=== PATIENT | female | born 1985 | race Caucasian/White ===

== ENCOUNTER 2016-03-01 14:29 | Emergency (ER) | payer OTHER ==
[~2016-03-01 14:29] MED LIST: ACET50TA PO; IBUP100SUS FT; IBUP80TA PO; PRENTAB74 PO
--- NOTE | 2016-03-01 15:28 | EDDOCDS ---
Nurse's Notes [facility] Name: Mary Lou Aaron Age: 31 yrs Sex: Female : 1985 Arrival Date: 03/01/2016 Time: 14:29 Bed TR7 Private MD: No Pcp Diagnosis: Acute nasopharyngitis [common cold] Presentation: 03/01 14:36 Presenting complaint: Patient states: Sore throat cough and congestion began yesterday. mlb1 Adult Sepsis Screening: The patient does not have new or worsening altered mentation. Patient's respiratory rate is less than 22. Systolic blood pressure is greater than 100. Patient has a qSOFA score of 0- Negative Sepsis Screen. Suicide/Homicide risk assessment- the patient denies having any suicidal and/or homicidal ideations and does not present with any other emotional, behavioral or mental health complaints. Status: Patient is not a administrative services specialist or dependent. Transition of care: patient was not received from another setting of care. 14:36 Acuity: MERLIN Level 5 mlb1 14:36 Method Of Arrival: Walkin/Carried/Asstd mlb1 Triage Assessment: 14:37 General: Appears in no apparent distress, Behavior is appropriate for age, cooperative. mlb1 Pain: Denies pain. HIV screening NA for this visit Offered previously. Respiratory: Reports cough that is non-productive. 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 Mirena 20 mcg/24 hr (5 years) intrauterine IUD - PMHx: none; - PSHx: none; - Social history: Smoking status: Patient states was never smoker of tobacco. No barriers to communication noted, The patient speaks fluent Mauritanian, Speaks appropriately for age. - Family history: Not pertinent. - : The pt / caregiver states he / she is not on anticoagulants. Home medication list is obtained from the patient. - Exposure Risk Screening:: None identified. Screenin:25 Screening information is obtained from the patient. Fall risk: No risks identified. ck1 Assistance ADL's: requires no assistance with activities of daily living. Abuse/DV Screen: The patient / caregiver reports he/she is: not in a situation that causes fear, pain or injury. Nutritional screening: No deficits noted. Advance Directives: Currently, there is no health care proxy. home support is adequate. Assessment: 15:26 General: Appears in no apparent distress, comfortable, Behavior is appropriate for age, ck1 cooperative. Pain: Denies pain. Neurological: Level of Consciousness is awake, alert, obeys commands, Oriented to person, place, time. Respiratory: Respiratory effort is unlabored, Respiratory pattern is regular, symmetrical. Derm: Skin is intact, is healthy with good turgor, Skin is pink, warm & dry. Vital Signs: 14:31 BP 123 / 68; Pulse 92; Resp 16; Temp 97.4(T); Pulse Ox 100% on R/A; Weight 70.31 kg; sew Height 5 ft. 3 in. (160.02 cm); Pain 0/10; 14:31 Body Mass Index 27.46 (70.31 kg, 160.02 cm) sew Vitals: 14:31 Log In Time: March 01, 2016 at 14:20. sew ED Course: 14:30 Patient visited by Alva Fallon. sew 14:30 Patient moved to Waiting sew 14:31 No Pcp is Private Physician. sew 14:32 Patient visited by Alva Fallon. sew 14:32 Patient moved to Pre RCE sew 14:36 Patient visited by Efe Maloney, RN. mlb1 14:36 Triage Initiated mlb1 14:38 Patient visited by Efe Maloney, RN. mlb1 15:08 Patient moved to Triage 1 ead 15:13 Fermin Alexander PA is PHCP. btw 15:13 Alva Rubio MD is Attending Physician. btw 15:13 Patient visited by Fermin Alexander PA. btw 15:21 [facility] is Referral Physician. btw 15:24 Patient moved to TR7 ck1 15:26 The patient / caregiver is instructed regarding the plan of care and ED course. ck1 15:26 No IV's were initiated during this patient's visit. No procedures done that require ck1 assistance. Order Results: There are currently no results for this order. Outcome: 15:21 Discharge ordered by Provider. btw 15:24 Discharge Assessment: Patient awake, alert and oriented x 3. No cognitive and/or ck1 functional deficits noted. Patient verbalized understanding of disposition instructions. patient administered narcotics - no. The following High Risk Discharge criteria are identified: None. Discharged to home ambulatory. Condition: stable. Discharge instructions given to patient, Instructed on discharge instructions, follow up and referral plans. medication usage, Demonstrated understanding of instructions, medications, Pt was receptive of discharge instructions/ teaching. No special radiology studies were completed. Property :Personal belongings accompany Pt. 15:27 Patient left the ED. ck1 Signatures: Efe Maloney RN RN mlb1 Carlyn JadeRN RN ck1 Fermin Alexander PA PA btw Wallace, Sarah sew Dunaway, EmilyRN RN ead Corrections: (The following items were deleted from the chart) 14:38 14:37 Home Meds: none; leroy harper MTDD
--- NOTE | 2016-03-01 15:28 | EDDOCDS ---
Physician Documentation [facility] Name: Mary Lou Aaron Age: 31 yrs Sex: Female : 1985 Arrival Date: 03/01/2016 Time: 14:29 Bed TR7 Private MD: No Pcp Disposition: 03/01/16 15:21 Discharged to Home/Self Care. Impression: Acute nasopharyngitis [common cold]. - Condition is Stable. - Discharge Instructions: Cool Mist Vaporizers, Upper Respiratory Infection, Adult, Gwpt-mp-Jusi, Viral Infections, Fjyq-Mc-Oacu. - Medication Reconciliation, Local Pharmacy Hours form. - [facility]: [facility]; When: Call to arrange an appointment; Reason: To establish care. - Problem is new. - Symptoms are unchanged. Historical: - Allergies: PENICILLINS (Hives, Rash); SULFA (SULFONAMIDES) (Hives); - Home Meds: 1. Mirena 20 mcg/24 hr (5 years) intrauterine IUD - PMHx: none; - PSHx: none; - Social history: Smoking status: Patient states was never smoker of tobacco. No barriers to communication noted, The patient speaks fluent Spanish, Speaks appropriately for age. - Family history: Not pertinent. - : The pt / caregiver states he / she is not on anticoagulants. Home medication list is obtained from the patient. - Exposure Risk Screening:: None identified. 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 3 in. (160.02 cm); Pain 0/10; 14:31 Body Mass Index 27.46 (70.31 kg, 160.02 cm) sew Signatures: Efe Maloney RN RN mlb1 Carlyn Jade RN RN ck1 Fermin Alexander PA PA btw The chart was reviewed and I authenticate all verbal orders and agree with the evaluation and treatment provided.Corrections: (The following items were deleted from the chart) 14:38 14:37 Home Meds: none; mlb1 mlb1 MTDD
--- NOTE | 2016-03-03 16:27 | EDDOCDS ---
Physician Documentation [facility] Name: Mary Lou Aaron Age: 31 yrs Sex: Female : 1985 Arrival Date: 03/01/2016 Time: 14:29 Bed TR7 Private MD: No Pcp Disposition: 03/01/16 15:21 Discharged to Home/Self Care. Impression: Acute nasopharyngitis [common cold]. - Condition is Stable. - Discharge Instructions: Cool Mist Vaporizers, Upper Respiratory Infection, Adult, Kwyo-tr-Kplt, Viral Infections, Lwjh-Sq-Cyin. - Medication Reconciliation, Local Pharmacy Hours form. - Follow up: [facility]; When: Call to arrange an appointment; Reason: To establish care. - Problem is new. - Symptoms are unchanged. Historical: - Allergies: PENICILLINS (Hives, Rash); SULFA (SULFONAMIDES) (Hives); - Home Meds: 1. Mirena 20 mcg/24 hr (5 years) intrauterine IUD - PMHx: none; - PSHx: none; - Social history: Smoking status: Patient states was never smoker of tobacco. No barriers to communication noted, The patient speaks fluent Brazilian, Speaks appropriately for age. - Family history: Not pertinent. - : The pt / caregiver states he / she is not on anticoagulants. Home medication list is obtained from the patient. - Exposure Risk Screening:: None identified. 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 3 in. (160.02 cm); Pain 0/10; 14:31 Body Mass Index 27.46 (70.31 kg, 160.02 cm) sew MDM: 03/02 10:39 T-Sheet-- Draft Copy was scanned into [employer] and attached to record. gb Signatures: Georgie Odonnell, Reg Reg Efe Bernal RN RN mlb1 Carlyn Jade RN RN ck1 Fermin Alexander, GELA PA btw The chart was reviewed and I authenticate all verbal orders and agree with the evaluation and treatment provided.Corrections: (The following items were deleted from the chart) 03/01 14:38 14:37 Home Meds: none; mlb1 mlb1 Attachments: 03/02 10:39 T-Sheet-- Draft Copy gb Chart Complete MTDD
--- NOTE | 2016-03-03 16:27 | EDDOCDS ---
Nurse's Notes [facility] Name: Mary Lou Aaron Age: 31 yrs Sex: Female : 1985 Arrival Date: 03/01/2016 Time: 14:29 Bed TR7 Private MD: No Pcp Diagnosis: Acute nasopharyngitis [common cold] Presentation: 03/01 14:36 Presenting complaint: Patient states: Sore throat cough and congestion began yesterday. mlb1 Adult Sepsis Screening: The patient does not have new or worsening altered mentation. Patient's respiratory rate is less than 22. Systolic blood pressure is greater than 100. Patient has a qSOFA score of 0- Negative Sepsis Screen. Suicide/Homicide risk assessment- the patient denies having any suicidal and/or homicidal ideations and does not present with any other emotional, behavioral or mental health complaints. Status: Patient is not a central service tech or dependent. Transition of care: patient was not received from another setting of care. 14:36 Acuity: MERLIN Level 5 mlb1 14:36 Method Of Arrival: Walkin/Carried/Asstd mlb1 Triage Assessment: 14:37 General: Appears in no apparent distress, Behavior is appropriate for age, cooperative. mlb1 Pain: Denies pain. HIV screening NA for this visit Offered previously. Respiratory: Reports cough that is non-productive. 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 Mirena 20 mcg/24 hr (5 years) intrauterine IUD - PMHx: none; - PSHx: none; - Social history: Smoking status: Patient states was never smoker of tobacco. No barriers to communication noted, The patient speaks fluent Greek, Speaks appropriately for age. - Family history: Not pertinent. - : The pt / caregiver states he / she is not on anticoagulants. Home medication list is obtained from the patient. - Exposure Risk Screening:: None identified. Screenin:25 Screening information is obtained from the patient. Fall risk: No risks identified. ck1 Assistance ADL's: requires no assistance with activities of daily living. Abuse/DV Screen: The patient / caregiver reports he/she is: not in a situation that causes fear, pain or injury. Nutritional screening: No deficits noted. Advance Directives: Currently, there is no health care proxy. home support is adequate. Assessment: 15:26 General: Appears in no apparent distress, comfortable, Behavior is appropriate for age, ck1 cooperative. Pain: Denies pain. Neurological: Level of Consciousness is awake, alert, obeys commands, Oriented to person, place, time. Respiratory: Respiratory effort is unlabored, Respiratory pattern is regular, symmetrical. Derm: Skin is intact, is healthy with good turgor, Skin is pink, warm & dry. Vital Signs: 14:31 BP 123 / 68; Pulse 92; Resp 16; Temp 97.4(T); Pulse Ox 100% on R/A; Weight 70.31 kg; sew Height 5 ft. 3 in. (160.02 cm); Pain 0/10; 14:31 Body Mass Index 27.46 (70.31 kg, 160.02 cm) sew Vitals: 14:31 Log In Time: March 01, 2016 at 14:20. sew ED Course: 14:30 Patient visited by Alva Fallon. sew 14:30 Patient moved to Waiting sew 14:31 No Pcp is Private Physician. sew 14:32 Patient visited by Alva Fallon. sew 14:32 Patient moved to Pre RCE sew 14:36 Patient visited by Efe Maloney, RN. mlb1 14:36 Triage Initiated mlb1 14:38 Patient visited by Efe Maloney, RN. mlb1 15:08 Patient moved to Triage 1 ead 15:13 Fermin Alexander PA is PHCP. btw 15:13 Alva Rubio MD is Attending Physician. btw 15:13 Patient visited by Fermin Alexander PA. btw 15:21 [facility] is Referral Physician. btw 15:24 Patient moved to TR7 ck1 15:26 The patient / caregiver is instructed regarding the plan of care and ED course. ck1 15:26 No IV's were initiated during this patient's visit. No procedures done that require ck1 assistance. 03/02 10:39 T-Sheet-- Draft Copy was scanned into [employer] and attached to record. gb Order Results: There are currently no results for this order. Outcome: 03/01 15:21 Discharge ordered by Provider. btw 15:24 Discharge Assessment: Patient awake, alert and oriented x 3. No cognitive and/or ck1 functional deficits noted. Patient verbalized understanding of disposition instructions. patient administered narcotics - no. The following High Risk Discharge criteria are identified: None. Discharged to home ambulatory. Condition: stable. Discharge instructions given to patient, Instructed on discharge instructions, follow up and referral plans. medication usage, Demonstrated understanding of instructions, medications, Pt was receptive of discharge instructions/ teaching. No special radiology studies were completed. Property :Personal belongings accompany Pt. 15:27 Patient left the ED. ck1 Signatures: Georgie Odonnell, Reg Reg gb Efe Maloney RN RN mlb1 Carlyn JadeRN RN ck1 Fermin Alexander PA PA btw Alva Fallon Emily,RN RN ead Corrections: (The following items were deleted from the chart) 14:38 14:37 Home Meds: none; mlb1 mlb1 Chart Complete MTDD
--- NOTE | 2016-03-03 16:27 | EDDOCDS ---
Physician Documentation [facility] Name: Mary Lou Aaron Age: 31 yrs Sex: Female : 1985 Arrival Date: 03/01/2016 Time: 14:29 Bed TR7 Private MD: No Pcp Disposition: 03/01/16 15:21 Discharged to Home/Self Care. Impression: Acute nasopharyngitis [common cold]. - Condition is Stable. - Discharge Instructions: Cool Mist Vaporizers, Upper Respiratory Infection, Adult, Hvlq-ur-Nfjk, Viral Infections, Engh-Rh-Llpa. - Medication Reconciliation, Local Pharmacy Hours form. - Follow up: [facility]; When: Call to arrange an appointment; Reason: To establish care. - Problem is new. - Symptoms are unchanged. Historical: - Allergies: PENICILLINS (Hives, Rash); SULFA (SULFONAMIDES) (Hives); - Home Meds: 1. Mirena 20 mcg/24 hr (5 years) intrauterine IUD - PMHx: none; - PSHx: none; - Social history: Smoking status: Patient states was never smoker of tobacco. No barriers to communication noted, The patient speaks fluent Kenyan, Speaks appropriately for age. - Family history: Not pertinent. - : The pt / caregiver states he / she is not on anticoagulants. Home medication list is obtained from the patient. - Exposure Risk Screening:: None identified. 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 3 in. (160.02 cm); Pain 0/10; 14:31 Body Mass Index 27.46 (70.31 kg, 160.02 cm) sew MDM: 03/02 10:39 T-Sheet-- Draft Copy was scanned into [employer] and attached to record. gb Signatures: Georgie Odonnell, Reg Reg Efe Bernal RN RN mlb1 Carlyn Jade RN RN ck1 Fermin Alexander, GELA PA btw The chart was reviewed and I authenticate all verbal orders and agree with the evaluation and treatment provided.Corrections: (The following items were deleted from the chart) 03/01 14:38 14:37 Home Meds: none; mlb1 mlb1 Attachments: 03/02 10:39 T-Sheet-- Draft Copy gb Chart Complete MTDD
== END 2016-03-01 15:26 | disposition home or self-care (01) ==
LOC: M ED 14:29
DX: J06.9 Acute upper respiratory infection, unspecified (principal); B34.9 Viral infection, unspecified; Z97.5 Presence of (intrauterine) contraceptive device; Z88.2 Allergy status to sulfonamides; Z88.0 Allergy status to penicillin

== ENCOUNTER → 2016-12-04 | Outpatient (REF) | payer OTHER ==
[~2016-12-04] MED LIST changes: +PROM25TA PO
[2016-12-04 14:21] LABS: MEAN CORPUSCULAR HEMOGLOBIN 30.7 pg (27.0-33.0); MEAN CORPUSCULAR HGB CONC 35.1 g/dl (32.0-36.5); MEAN CORPUSCULAR VOLUME 87.5 fl (80.0-96.0); PLATELET COUNT, AUTOMATED 227 10^3/uL (150-450); RED CELL DISTRIBUTION WIDTH 11.8 % (11.5-14.5); WHITE BLOOD COUNT 8.6 10^3/uL (4.0-10.0)
[2016-12-04 14:53] LABS: HCG, SERUM QUANTITATIVE 24012 MIU/ML
[2016-12-05 13:19] LABS: HBsAg Prenatal NEGATIVE (NEGATIVE)
== END ==
LOC: M LAB REF 13:31
PROVIDERS: ATTEND Obstetrics & Gynecology
DX: Z32.01 Encounter for pregnancy test, result positive (principal); O36.80X0 Pregnancy with inconclusive fetal viability, not applicable or unspecified

== ENCOUNTER 2017-01-12 09:06 | Emergency (ER) | payer OTHER ==
[~2017-01-12] VITALS: Ht 160 cm; Wt 80.4 kg
[2017-01-12 09:17] VITALS: BP 138/88
[2017-01-12] MEDS ORDERED: DEXT75EL PO (09:20)
[2017-01-12] MEDS ORDERED: ZITHTAB PO (09:41)
== END 2017-01-12 09:49 | disposition home or self-care (01) ==
LOC: M ED 09:06
DX: O99.511 Diseases of the respiratory system complicating pregnancy, first trimester (principal); J01.90 Acute sinusitis, unspecified; Z3A.12 12 weeks gestation of pregnancy; Z88.0 Allergy status to penicillin; Z88.2 Allergy status to sulfonamides

== ENCOUNTER 2017-02-22 15:53 | Emergency (ER) | payer OTHER ==
[2017-02-22] MEDS: ACETAMINOPHEN TAB 650MG DOSE (2X325MG) PO (19:30)
== END 2017-02-22 20:15 | disposition home or self-care (01) ==
LOC: M ED 15:53
DX: O99.512 Diseases of the respiratory system complicating pregnancy, second trimester (principal); J06.9 Acute upper respiratory infection, unspecified; Z3A.19 19 weeks gestation of pregnancy; Z88.0 Allergy status to penicillin; Z88.2 Allergy status to sulfonamides
CPT/HCPCS: 87804

== ENCOUNTER → 2017-04-22 | Outpatient (CLI) | payer OTHER ==
[2017-04-22 16:28] LABS: HEMATOCRIT 34.1 % (36.0-47.0); MEAN CORPUSCULAR HEMOGLOBIN 30.6 pg (27.0-33.0); MEAN CORPUSCULAR HGB CONC 35.2 g/dl (32.0-36.5); PLATELET COUNT, AUTOMATED 188 10^3/uL (150-450); RED BLOOD COUNT 3.92 10^6/uL (4.00-5.40); RED CELL DISTRIBUTION WIDTH 12.1 % (11.5-14.5); WHITE BLOOD COUNT 11.2 10^3/uL (4.0-10.0)
[2017-04-22 16:48] LABS: GLUCOSE CHALLENGE TEST 1 HOUR 151 MG/DL (LESS THAN 140)
== END ==
LOC: M LAB 14:51
DX: Z34.82 Encounter for supervision of other normal pregnancy, second trimester (principal); Z3A.00 Weeks of gestation of pregnancy not specified
CPT/HCPCS: 82950

== ENCOUNTER → 2017-04-25 | Outpatient (CLI) | payer OTHER ==
[2017-04-25 09:39] LABS: GLUCOSE, FASTING 98 MG/DL (LESS THAN 95)
[2017-04-25 10:51] LABS: 1 HR GLUCOSE 182 MG/DL (LESS THAN 180)
[2017-04-25 12:07] LABS: 2 HR GLUCOSE 133 MG/DL (LESS THAN 155)
[2017-04-25 13:13] LABS: 3 HR GLUCOSE 85 MG/DL (LESS THAN 140)
== END ==
LOC: M LAB 08:43
DX: O99.810 Abnormal glucose complicating pregnancy (principal); Z3A.00 Weeks of gestation of pregnancy not specified
CPT/HCPCS: 82951

== ENCOUNTER → 2017-07-04 | Outpatient (REF) | payer OTHER | LOC: M LAB REF 16:41 | DX: O24.415 Gestational diabetes mellitus in pregnancy, controlled by oral hypoglycemic drugs (principal); Z3A.37 37 weeks gestation of pregnancy ==

== ENCOUNTER 2017-07-17 11:16 | Inpatient (IN) | payer OTHER ==
[2017-07-17 12:06] LABS: BEDSIDE GLUCOSE 108 MG/DL (70-105)
[2017-07-17] MEDS: LR 300 ML IV (12:24)
[2017-07-17 12:44] LABS: HEMATOCRIT 33.1 % (36.0-47.0); HEMOGLOBIN 11.6 g/dl (12.0-15.5); MEAN CORPUSCULAR HEMOGLOBIN 29.7 pg (27.0-33.0); MEAN CORPUSCULAR VOLUME 84.9 fl (80.0-96.0); PLATELET COUNT, AUTOMATED 152 10^3/uL (150-450); RED CELL DISTRIBUTION WIDTH 12.6 % (11.5-14.5); WHITE BLOOD COUNT 9.5 10^3/uL (4.0-10.0)
[2017-07-17] MEDS: miSOPROStol 50 MCG 1/2 TAB (S0191) PO (14:22)
[2017-07-17 16:36] LABS: BEDSIDE GLUCOSE 113 MG/DL (70-105)
[2017-07-17] MEDS ORDERED: OXYTOCIN 30 UNITS IN 0.9% NaCl 500ML IV BAG (J2590) As Ordered (19:03)
[2017-07-17] MEDS: LR 1,000 ML IV (19:26)
[2017-07-17] MEDS: OXYTOCIN DRIP 30 UNITS in APPROPRIATE DILUENT 1 EA IV ×2 (19:26→23:49)
[2017-07-17] MEDS: VANCOMYCIN HCL 1,000 MG, VIAL MATE ADAPTER 1 EACH in D5W 250 ML IV (20:08)
[2017-07-17] MEDS ORDERED: * PENDING VANCOMYCIN ENTRY XX (21:00)
[2017-07-17 21:45] LABS: BEDSIDE GLUCOSE 110 MG/DL (70-105)
[2017-07-17] MEDS ORDERED: FENTANYL 2MCG/ML ROPIVACAINE 0.2% IN 0.9% NACL 200ML IVBAG As Ordered (22:09)
[2017-07-17] MEDS ORDERED: FENTANYL/ROPIVACAINE/NACL BAG 200 ML EPIDURAL (23:00)
[2017-07-17] MEDS ORDERED: REFRIGERATOR IV KEYS XX (23:00)
[2017-07-17] MEDS ORDERED: EPIDURAL COMMENT XX (23:00)
[2017-07-17] MEDS ORDERED: diphenhydrAMINE INJ 50MG/ML VIAL (J1200) IV (23:00)
[2017-07-17] MEDS ORDERED: ePHEDrine SULFATE 25 MG/5 ML(5MG/ML) SYRINGE IV (23:00)
[2017-07-17] MEDS ORDERED: ONDANSETRON 4MG/2ML VIAL (J2405) IV (23:00)
[2017-07-17] MEDS ORDERED: EPIDURAL/PCA KEYS XX (23:00)
[2017-07-17] MEDS ORDERED: LACTATED RINGER'S 1000 ML IV (23:00)
[2017-07-17] MEDS ORDERED: NALOXONE INJ 0.4 MG/1 ML VIAL (J2310) IV (23:00)
[2017-07-18] MEDS ORDERED: ANUSOL HC CREAM 30GM TOP
[2017-07-18] MEDS ORDERED: ACETAMINOPHEN 500 MG TAB PO
[2017-07-18] MEDS ORDERED: METHYLERGONOVINE MALEATE 0.2 MG TAB PO
[2017-07-18] MEDS ORDERED: DIBUCAINE 1% OINTMENT 30GM TOP
[2017-07-18] MEDS: IBUPROFEN 800 MG TAB PO ×2 (06:52→17:13)
[2017-07-18] MEDS: RHOGAM 300 MCG (1500 IU) INJ (J2790) IM (07:15)
[2017-07-18] MEDS: MEASLES,MUMPS,RUBELLA VACCINE INJ (MMR-II) (90707) SC (07:15)
[2017-07-18] MEDS: PRENATAL VITAMINS CHEWABLE TABLET PO (08:17)
[2017-07-18] MEDS: DOCUSATE SODIUM 100 MG CAP PO (19:47)
[2017-07-19] MEDS: PRENATAL VITAMINS CHEWABLE TABLET PO (10:40)
== END 2017-07-19 10:45 | disposition home or self-care (01) | DRG 560 ==
LOC: M LDI 11:16 → M OBS 07-18 02:48
PROVIDERS: Advanced Practice Midwife
PROC: 10E0XZZ Delivery of Products of Conception, External Approach (ICD-10-PCS; principal; 2017-07-17)
PROC: 3E0P7GC Introduction of Other Therapeutic Substance into Female Reproductive, Via Natural or Artificial Opening (ICD-10-PCS; 2017-07-17)
DX: O24.425 Gestational diabetes mellitus in childbirth, controlled by oral hypoglycemic drugs (principal); Z3A.39 39 weeks gestation of pregnancy; O99.824 Streptococcus B carrier state complicating childbirth; Z37.0 Single live birth

== ENCOUNTER 2017-11-29 09:57 | Day surgery (SDC) | payer OTHER ==
[2017-11-29] MEDS: LR 1,000 ML IV (10:30)
[2017-11-29 10:38] LABS: CONTROL LINE UCG INT CTR LINE PRESENT; HEMATOCRIT 41.7 % (36.0-47.0); HEMOGLOBIN 14.4 g/dl (12.0-15.5); MEAN CORPUSCULAR HEMOGLOBIN 30.3 pg (27.0-33.0); MEAN CORPUSCULAR HGB CONC 34.5 g/dl (32.0-36.5); MEAN CORPUSCULAR VOLUME 87.8 fl (80.0-96.0); PLATELET COUNT, AUTOMATED 221 10^3/uL (150-450); RED BLOOD COUNT 4.75 10^6/uL (4.00-5.40); RED CELL DISTRIBUTION WIDTH 11.9 % (11.5-14.5); URINE PREG TEST NEGATIVE (NEGATIVE); WHITE BLOOD COUNT 7.2 10^3/uL (4.0-10.0)
[2017-11-29] MEDS ORDERED: ROCURONIUM BROMIDE 50 MG/5 ML VIAL As Ordered (11:17)
[2017-11-29] MEDS ORDERED: dexameTHASONE 4 MG/ML 1ML VIAL (J1100) As Ordered (11:17)
[2017-11-29] MEDS ORDERED: PROPOFOL 200 MG/20 ML VIAL As Ordered (11:17)
[2017-11-29] MEDS ORDERED: LIDOCAINE 2% INJ 100 MG/5 ML SDV (FOR ANES.) As Ordered (11:17)
[2017-11-29] MEDS ORDERED: MIDAZOLAM INJ 2 MG/2 ML VIAL (J2250) As Ordered (11:17)
[2017-11-29] MEDS ORDERED: fentaNYL 100 MCG/2 ML INJECTION (J3010) As Ordered ×3 (11:17→12:55)
[2017-11-29] MEDS ORDERED: ONDANSETRON 4MG/2ML VIAL (J2405) As Ordered ×2 (11:17→12:47)
[2017-11-29] MEDS: BUPIVACAINE/EPIN 0.25% 30 ML VIAL As Ordered (11:26)
[2017-11-29] MEDS: ACETAMINOPHEN 650 MG SUPP As Ordered (11:55)
[2017-11-29] MEDS ORDERED: SUGAMMADEX SODIUM 500 MG/5 ML VIAL (BRIDION) As Ordered (12:06)
[2017-11-29] MEDS ORDERED: KETOROLAC 60 MG/2 ML VIAL (J1885) As Ordered (12:06)
[2017-11-29] MEDS: fentaNYL 100 MCG/2 ML INJECTION (J3010) IV ×4 (12:50→13:05)
[2017-11-29] MEDS: ONDANSETRON 4MG/2ML VIAL (J2405) IV (12:50)
[2017-11-29] MEDS ORDERED: PERCOCET 5MG/325MG TAB As Ordered (12:55)
[2017-11-29] MEDS ORDERED: METOCLOPRAMIDE INJ 10MG/2ML VIAL (J2765) As Ordered (13:10)
[2017-11-29] MEDS ORDERED: PERCOCET 5MG/325MG TAB PO ×2 (13:15)
[2017-11-29] MEDS ORDERED: LR 1,000 ML IV (13:15)
[2017-11-29] MEDS: METOCLOPRAMIDE INJ 10MG/2ML VIAL (J2765) IV (13:15)
[2017-11-29] MEDS ORDERED: HYDROMORPHONE HCL 0.5 MG/ 0.5 ML SYRINGE (J1170 PER 1) IV (13:15)
[2017-11-29] MEDS ORDERED: ACETAMINOPH W/CODEINE #3 TAB UD PO (14:00)
[2017-11-29] MEDS ORDERED: IBUPROFEN 800 MG TAB PO (18:00)
== END 2017-11-29 14:50 | disposition home or self-care (01) ==
LOC: M SDC 09:57
DX: Z30.2 Encounter for sterilization (principal); Z88.0 Allergy status to penicillin; Z88.2 Allergy status to sulfonamides; Z86.32 Personal history of gestational diabetes
CPT/HCPCS: 58671

== ENCOUNTER 2018-03-13 01:10 | Emergency (ER) | payer OTHER ==
[~2018-03-13] VITALS: Ht 160 cm; Wt 75.9 kg
[~2018-03-13 01:10] MED LIST changes: -ACET50TA PO; +ALL10TAB28 PO; +DEXT10SY2 PO; +DEXT75EL PO; +IBUP-1114 PO; +IBUP1TAB7 PO; +MAPA500T2 PO; +METF-877 PO; +METF500T13 PO; +PRENTAB9 PO; -PROM25TA PO; +PROM25TA12 PO; +ZITHTAB PO
[2018-03-13 01:46] LABS: BASO % 0.4 % (0.0-1.0); EOS # 0.1 10^3/uL (0.0-0.50); HEMATOCRIT 41.5 % (36.0-47.0); HEMOGLOBIN 14.5 g/dl (12.0-15.5); LYMPH # 2.5 10^3/uL (1.5-4.5); LYMPH % 36.1 % (24.0-44.0); MEAN CORPUSCULAR HGB CONC 34.9 g/dl (32.0-36.5); MEAN CORPUSCULAR VOLUME 85.9 fl (80.0-96.0); MONO # 0.4 10^3/uL (0.0-0.8); MONO % 6.4 % (0.0-5.0); NEUTROPHILS # 3.8 10^3/uL (1.8-7.7); PLATELET COUNT, AUTOMATED 224 10^3/uL (150-450); RED BLOOD COUNT 4.83 10^6/uL (4.00-5.40); WHITE BLOOD COUNT 6.8 10^3/uL (4.0-10.0)
[2018-03-13 01:59] LABS: BLOOD UREA NITROGEN 15 MG/DL (7-18); CALCIUM LEVEL 8.8 MG/DL (8.5-10.1); CARBON DIOXIDE LEVEL 27 MEQ/L (21-32); CHLORIDE LEVEL 106 MEQ/L (98-107); CPK CREATINE PHOSPHOKINASE 80 U/L (26-192); CREATININE FOR GFR 0.81 MG/DL (0.55-1.30); GLOMERULAR FILTRATION RATE > 60.0 (>60); GLUCOSE, FASTING 117 MG/DL (70-100); POTASSIUM SERUM 3.5 MEQ/L (3.5-5.1); SODIUM LEVEL 139 MEQ/L (136-145); TROPONIN I < 0.02 NG/ML (< 0.10)
[2018-03-13 02:08] LABS: ABG BASE EXCESS -2.2 (-2.0-2.0); ABG HCO3 21.7 MEQ/L (22.0-26.0); ABG O2 SATURATION 97.6 % (95.0-99.0); ABG PARTIAL PRESSURE CO2 34.8 mmHg (35.0-45.0); ABG PARTIAL PRESSURE O2 95.6 mmHg (75.0-100.0); ABG STANDARD HCO3 22.7 MEQ/L (22.0-26.0); ABG TOTAL CO2 22.8 MEQ/L (22.0-29.0); ABG pH (ARTERIAL) 7.413 UNITS (7.350-7.450)
[2018-03-13 02:34] LABS: INR 0.95; PROTHROMBIN TIME 12.8 SECONDS (12.1-14.4)
[2018-03-13] MEDS ORDERED: KETOROLAC 30 MG/ML VIAL (J1885) IV ONE (03:00)
[2018-03-13] MEDS ORDERED: KETO10TAB PO (03:03)
[2018-03-13 03:10] VITALS: BP 112/66
--- NOTE | 2018-03-13 10:25 | ECGEPIP ---
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
== END 2018-03-13 03:15 | disposition home or self-care (01) ==
LOC: M ED 01:10
DX: R07.1 Chest pain on breathing (principal)
CPT/HCPCS: 36600; 80048; 82550; 82553; 82803; 85025; 85610; 85730; 93005; 96374; 99284; J1885

== ENCOUNTER → 2018-04-17 | Outpatient (REF) | payer OTHER ==
[~2018-04-17] MED LIST changes: +KETO10TAB PO
[2018-04-17 13:56] LABS: ALT/SGPT 22 U/L (12-78); BILIRUBIN,TOTAL 0.5 MG/DL (0.2-1.0); BLOOD UREA NITROGEN 19 MG/DL (7-18); CALCIUM LEVEL 8.9 MG/DL (8.5-10.1); CARBON DIOXIDE LEVEL 26 MEQ/L (21-32); CHLORIDE LEVEL 107 MEQ/L (98-107); CREATININE FOR GFR 0.74 MG/DL (0.55-1.30); GLOMERULAR FILTRATION RATE > 60.0 (>60); GLUCOSE, FASTING 95 MG/DL (70-100); POTASSIUM SERUM 4.4 MEQ/L (3.5-5.1); SODIUM LEVEL 140 MEQ/L (136-145)
[2018-04-17 13:57] LABS: ALBUMIN 4.4 GM/DL (3.2-5.2); CHOLESTEROL LEVEL 176 MG/DL (<200); CHOLESTEROL RISK RATIO 3.911 (<5); HDL CHOLESTEROL 45 MG/DL (>40); LDL CHOLESTEROL 117 MG/DL (<100); NON-HDL-C 131 MG/DL; TOTAL PROTEIN 7.8 GM/DL (6.4-8.2); TRIGLYCERIDES LEVEL 69 MG/DL (<150)
== END ==
LOC: M SFHCPLAZ 08:08
PROVIDERS: ATTEND Nurse Practitioner Family
DX: Z00.00 Encounter for general adult medical examination without abnormal findings (principal); Z86.32 Personal history of gestational diabetes; Z13.220 Encounter for screening for lipoid disorders

== ENCOUNTER → 2018-05-22 | Outpatient (CLI) | payer OTHER ==
[~2018-05-22] MED LIST changes: +IBUP100S44 FT; -IBUP100SUS FT
[2018-05-22 17:36] LABS: HEMATOCRIT 40.9 % (36.0-47.0); MEAN CORPUSCULAR HEMOGLOBIN 29.9 pg (27.0-33.0); MEAN CORPUSCULAR HGB CONC 34.2 g/dl (32.0-36.5); MEAN CORPUSCULAR VOLUME 87.2 fl (80.0-96.0); PLATELET COUNT, AUTOMATED 240 10^3/uL (150-450); RED BLOOD COUNT 4.69 10^6/uL (4.00-5.40); WHITE BLOOD COUNT 7.4 10^3/uL (4.0-10.0)
[2018-05-22 18:01] LABS: THYROID STIMULATING HORMONE 1.46 uIU/ML (0.358-3.740)
[2018-05-22 18:03] LABS: TOTAL 25(OH) VITAMIN D 16.3 NG/ML (30.0-100.0)
== END ==
LOC: M LAB 15:31
PROVIDERS: ATTEND Nurse Practitioner Family
DX: R53.83 Other fatigue (principal); L65.9 Nonscarring hair loss, unspecified

== ENCOUNTER 2018-05-30 18:53 | Emergency (ER) | payer OTHER ==
[~2018-05-30] VITALS: Ht 160 cm; Wt 76.8 kg
[2018-05-30] MEDS ORDERED: CEFD1CAP8 PO (21:15)
[2018-05-30 21:24] VITALS: BP 127/81
== END 2018-05-30 21:27 | disposition home or self-care (01) ==
LOC: M ED 18:53
DX: G47.33 Obstructive sleep apnea (adult) (pediatric) (principal); J01.90 Acute sinusitis, unspecified; E55.9 Vitamin D deficiency, unspecified; Z88.0 Allergy status to penicillin; Z88.2 Allergy status to sulfonamides

== ENCOUNTER 2018-06-27 17:07 | Emergency (ER) | payer OTHER ==
[~2018-06-27] VITALS: Ht 160 cm; Wt 77.3 kg
[~2018-06-27 17:07] MED LIST changes: +CEFD1CAP8 PO
[2018-06-27] MEDS ORDERED: KETOROLAC 30 MG/ML VIAL (J1885) IV ONE (19:45)
[2018-06-27] MEDS ORDERED: METOCLOPRAMIDE INJ 10MG/2ML VIAL (J2765) IV ONE (19:45)
[2018-06-27] MEDS ORDERED: diphenhydrAMINE INJ 50MG/ML VIAL (J1200) IV ONE (19:45)
[2018-06-27] MEDS ORDERED: NS 1,000 ML IV ONE (19:45)
[2018-06-27 20:24] LABS: BASO % 0.3 % (0.0-1.0); EOS % 0.6 % (0.0-3.0); HEMATOCRIT 40.1 % (36.0-47.0); HEMOGLOBIN 13.9 g/dl (12.0-15.5); LYMPH # 2.4 10^3/uL (1.5-4.5); LYMPH % 37.1 % (24.0-44.0); MEAN CORPUSCULAR HEMOGLOBIN 30.5 pg (27.0-33.0); MEAN CORPUSCULAR HGB CONC 34.7 g/dl (32.0-36.5); MEAN CORPUSCULAR VOLUME 87.9 fl (80.0-96.0); MONO # 0.5 10^3/uL (0.0-0.8); MONO % 7.2 % (0.0-5.0); NEUTROPHILS # 3.6 10^3/uL (1.8-7.7); NEUTROPHILS % 54.6 % (36.0-66.0); PLATELET COUNT, AUTOMATED 213 10^3/uL (150-450); RED BLOOD COUNT 4.56 10^6/uL (4.00-5.40); WHITE BLOOD COUNT 6.6 10^3/uL (4.0-10.0)
[2018-06-27 20:37] LABS: BLOOD UREA NITROGEN 16 MG/DL (7-18); CALCIUM LEVEL 9.2 MG/DL (8.5-10.1); CARBON DIOXIDE LEVEL 27 MEQ/L (21-32); CHLORIDE LEVEL 106 MEQ/L (98-107); CREATININE FOR GFR 0.73 MG/DL (0.55-1.30); GLOMERULAR FILTRATION RATE > 60.0 (>60); GLUCOSE, FASTING 93 MG/DL (70-100); POTASSIUM SERUM 3.6 MEQ/L (3.5-5.1); SODIUM LEVEL 139 MEQ/L (136-145)
[2018-06-27 21:30] VITALS: BP 124/80
[2018-06-27] MEDS ORDERED: REGL10TA6 PO (22:17)
[2018-07-04] MEDS ORDERED: MIRA3350 PO (14:56)
== END 2018-06-27 22:37 | disposition home or self-care (01) ==
LOC: M ED 17:07
DX: R51 Headache (principal); Z88.0 Allergy status to penicillin; Z88.2 Allergy status to sulfonamides
CPT/HCPCS: 80048; 85025; 87880; 99284; J1200; J1885; J2765

== ENCOUNTER 2018-07-18 10:56 | Day surgery (SDC) | payer OTHER ==
[~2018-07-18] VITALS: Ht 160 cm; Wt 74.4 kg
[~2018-07-18 10:56] MED LIST changes: +LIDOCAINE 2% INJ 100 MG/5 ML SDV (FOR ANES.) As Ordered ONE; +MIRA3350 PO; +NS 1,000 ML IV ONE; +PROPOFOL 200 MG/20 ML VIAL As Ordered ONE; +REGL10TA6 PO
--- NOTE | 2018-07-18 11:41 | ROOR ---
Patient Name: Mary Lou Aaron Procedure Date: 07/18/2018 11:25 AM Date of : 1985 Age: 33 Room: [facility]02 Gender: Female Note Status: Finalized Procedure: Colonoscopy Indications: Hematochezia, Irritable bowel syndrome with constipation Providers: Abel RUTH MD Referring MD: Winsome Rm NP Requesting Provider: Medicines: Monitored Anesthesia Care Complications: No immediate complications. Procedure: Pre-Anesthesia Assessment: - The heart rate, respiratory rate, oxygen saturations, blood pressure, adequacy of pulmonary ventilation, and response to care were monitored throughout the procedure. The Colonoscope was introduced through the anus and advanced to 10 cm into the ileum. The colonoscopy was performed without difficulty. The patient tolerated the procedure well. The quality of the bowel preparation was good. Findings: The perianal and digital rectal examinations were normal. Small Internal Hemorrhoids. The entire examined colon appeared normal on direct and retroflexion views. The terminal ileum appeared normal. Impression: - Small Internal Hemorrhoids. - The entire colon is normal on direct and retroflexion views. - The examined portion of the ileum was normal. - No specimens collected. Recommendation: - Continue present medications. - Return to referring physician as previously scheduled. Abel Ruth MD Abel RUTH MD 07/18/2018 11:41:14 AM Electronically signed by Abel RUTH MD Number of Addenda: 0 Note Initiated On: 07/18/2018 11:25 AM Estimated Blood Loss: Estimated blood loss: none.
[2018-07-18 12:00] VITALS: BP 124/78
== END 2018-07-18 12:08 | disposition home or self-care (01) ==
LOC: M OPP 10:56
PROVIDERS: ATTEND Internal Medicine Gastroenterology
DX: K64.8 Other hemorrhoids (principal); K92.1 Melena; K58.1 Irritable bowel syndrome with constipation

== ENCOUNTER 2018-09-04 11:42 | Emergency (ER) | payer OTHER ==
[~2018-09-04] VITALS: Ht 160 cm; Wt 77.4 kg
[~2018-09-04 11:42] MED LIST changes: -LIDOCAINE 2% INJ 100 MG/5 ML SDV (FOR ANES.) As Ordered ONE; -NS 1,000 ML IV ONE; -PROPOFOL 200 MG/20 ML VIAL As Ordered ONE
[2018-09-04] MEDS ORDERED: ACETAMINOPHEN TAB 650MG DOSE (2X325MG) PO ONE (14:15)
[2018-09-04 14:29] LABS: BASO % 0.5 % (0.0-1.0); EOS % 0.5 % (0.0-3.0); HEMATOCRIT 42.5 % (36.0-47.0); HEMOGLOBIN 14.8 g/dl (12.0-15.5); LYMPH # 2.1 10^3/uL (1.5-4.5); LYMPH % 24.8 % (24.0-44.0); MEAN CORPUSCULAR HEMOGLOBIN 30.8 pg (27.0-33.0); MEAN CORPUSCULAR HGB CONC 34.8 g/dl (32.0-36.5); MEAN CORPUSCULAR VOLUME 88.5 fl (80.0-96.0); MONO # 0.4 10^3/uL (0.0-0.8); MONO % 4.9 % (0.0-5.0); PLATELET COUNT, AUTOMATED 230 10^3/uL (150-450); WHITE BLOOD COUNT 8.6 10^3/uL (4.0-10.0)
[2018-09-04 14:49] LABS: BLOOD UREA NITROGEN 10 MG/DL (7-18); CALCIUM LEVEL 9.4 MG/DL (8.5-10.1); CARBON DIOXIDE LEVEL 29 MEQ/L (21-32); CHLORIDE LEVEL 106 MEQ/L (98-107); CREATININE FOR GFR 0.68 MG/DL (0.55-1.30); GLOMERULAR FILTRATION RATE > 60.0 (>60); GLUCOSE, FASTING 87 MG/DL (70-100); POTASSIUM SERUM 3.9 MEQ/L (3.5-5.1); SODIUM LEVEL 140 MEQ/L (136-145)
--- NOTE | 2018-09-04 15:09 | REP ---
HISTORY: Pain in the neck. No trauma. CT cannot rule out a disc extrusion and poorly evaluates broad-based bulges if present. Vertebral body height and alignment is within normal limits. The facet joints are well aligned bilaterally. The disc spaces are symmetric and well maintained throughout. There is no bony cause of foraminal narrowing or central canal stenosis. There is no abnormal paraspinal soft tissue swelling. IMPRESSION: CT findings are within normal limits with limitations as described above. Electronically Signed by Michael Carballo DO 09/04/2018 04:20 P
--- NOTE | 2018-09-04 15:09 | REP ---
CT BRAIN WITHOUT CONTRAST: REASON: Headache. PRIORS: None. TECHNIQUE: 4.5 mm contiguous transaxial sections were obtained from the skull base to the cerebral convexities with thin cuts through the posterior fossa without the administration of intravenous contrast. FINDINGS: The ventricles and sulci are consistent with the patient's age. There are no extra-axial fluid collections. There is no mass effect. The deep cerebral white matter is consistent with the patient's age. The orbital and petrous structures, cerebellopontine angles, and posterior fossa are unremarkable. The sella turcica, cavernous, and paracavernous structures are essentially unremarkable. The visualized portions of the paranasal sinuses and mastoid air cells are clear. Images of the skull base show no gross abnormality. IMPRESSION: Essentially unremarkable CT examination of the brain. Electronically Signed by Michael Carballo DO 09/04/2018 04:20 P
[2018-09-04 15:16] VITALS: BP 134/84
== END 2018-09-04 15:34 | disposition home or self-care (01) ==
LOC: M ED 11:42
DX: R51 Headache (principal); M54.2 Cervicalgia; Z88.0 Allergy status to penicillin; Z88.2 Allergy status to sulfonamides

== ENCOUNTER → 2018-11-18 | Outpatient (CLI) | payer OTHER ==
[~2018-11-18] MED LIST changes: -ALL10TAB28 PO; +ALL10TAB29 PO
--- NOTE | 2018-11-18 17:25 | REP ---
Maxillofacial CT study without contrast: History: Chronic maxillary sinusitis. Comparison CT study of the brain September 04, 2018. CT findings: Preliminary senior ruby developer images are unremarkable. There is mild mucosal thickening at the inferior aspect of each maxillary sinus. The maxillary sinuses are otherwise clear. Sphenoid and ethmoid sinuses are clear. Small frontal sinuses show no evidence of mucosal thickening or opacification. Mastoid aeration is normal and symmetric. The bony nasal septum bows somewhat to the right without a visible septal beak. Nasal turbinate soft tissues are unremarkable. Small bilateral aerated ezio bullosa are seen in the middle turbinates. The ostiomeatal complexes are patent bilaterally. No intraorbital lesion or intracranial lesion is appreciated. Impression: Minimal mucosal thickening in the inferior aspect of each maxillary sinus. Otherwise negative. Electronically Signed by Clovis Ferreira MD 11/19/2018 09:16 A
== END ==
LOC: M RAD 16:19
PROVIDERS: ATTEND Otolaryngology
DX: J32.0 Chronic maxillary sinusitis (principal)

== ENCOUNTER → 2019-03-03 | Outpatient (CLI) | payer OTHER ==
--- NOTE | 2019-03-03 18:25 | REP ---
RIGHT UPPER EXTREMITY (AXILLARY) ULTRASOUND: 03/03/2019. Clinical history: Right axillary swelling. Sonographic evaluation of the axilla and this patient has pain and swelling associated with therapy. After a cycle was completed, pain and swelling resolved. Findings: No prior study. The right axilla was scanned and showed no subjacent mass, cyst, architectural distortion, nor pathologic sized adenopathy or vascular lesion. No fluid collection. Impression: 1. Negative right axillary ultrasound for mass, fluid collection, adenopathy or other acute finding. Electronically Signed by Westley Montenegro MD 03/03/2019 06:16 P
== END ==
LOC: M RAD 11:39
PROVIDERS: ATTEND Nurse Practitioner Adult Health
DX: M79.89 Other specified soft tissue disorders (principal)

== ENCOUNTER 2019-03-10 08:39 | Emergency (ER) | payer OTHER ==
[~2019-03-10] VITALS: Ht 160 cm; Wt 80.9 kg
[2019-03-10] MEDS ORDERED: ADVIL MIGRAINE (08:49)
[2019-03-10 10:43] LABS: INFLUENZA A AMPLIFICATION NEGATIVE (NEGATIVE); INFLUENZA B AMPLIFICATION POSITIVE (NEGATIVE)
[2019-03-10 11:02] VITALS: BP 112/71
== END 2019-03-10 11:28 | disposition home or self-care (01) ==
LOC: M ED 08:39
DX: J10.89 Influenza due to other identified influenza virus with other manifestations (principal); Z79.899 Other long term (current) drug therapy; Z88.0 Allergy status to penicillin; Z88.2 Allergy status to sulfonamides

== ENCOUNTER 2019-09-27 09:08 | Emergency (ER) | payer OTHER ==
[~2019-09-27 09:08] MED LIST changes: +ADVIL MIGRAINE; -ALL10TAB29 PO; +CETI-24 PO
== END 2019-09-27 09:48 | disposition home or self-care (01) ==
LOC: M ED 09:08
DX: J06.9 Acute upper respiratory infection, unspecified (principal); Z88.0 Allergy status to penicillin; Z88.2 Allergy status to sulfonamides

== ENCOUNTER 2020-05-15 16:50 | Emergency (ER) | payer OTHER ==
[~2020-05-15] VITALS: Ht 160 cm; Wt 84.6 kg
[2020-05-15 17:00] VITALS: BP 142/93
[2020-05-15] MEDS ORDERED: ACET-683 PO (17:03)
[2020-05-15] MEDS ORDERED: IBUP200C25 PO (17:04)
[2020-05-15] MEDS ORDERED: LIDOCAINE VISCOUS 2% SOLN 15ML UDC SS ONE (18:25)
[2020-05-15] MEDS ORDERED: CLINDAMYCIN 150MG CAPSULE PO ONE (18:25)
[2020-05-15] MEDS ORDERED: KETO10TAB PO (18:29)
[2020-05-15] MEDS ORDERED: LIDO2SOL9 SS (18:29)
[2020-05-15] MEDS ORDERED: CLEO300C2 PO (18:29)
== END 2020-05-15 18:51 | disposition home or self-care (01) ==
LOC: M ED 16:50
DX: K04.7 Periapical abscess without sinus (principal); E11.9 Type 2 diabetes mellitus without complications; Z88.0 Allergy status to penicillin; Z88.2 Allergy status to sulfonamides; Z88.1 Allergy status to other antibiotic agents

== ENCOUNTER 2020-05-17 16:51 | Emergency (ER) | payer OTHER ==
[~2020-05-17] VITALS: Ht 160 cm; Wt 83.5 kg
[~2020-05-17 16:51] MED LIST changes: +ACET-683 PO; +CLEO300C2 PO; +IBUP200C25 PO; +LIDO2SOL9 SS
[2020-05-17] MEDS ORDERED: NS 1,000 ML IV SCH (18:10)
[2020-05-17] MEDS ORDERED: CLINDAMYCIN 600 MG in IV 1 EA IV ONE (18:10)
[2020-05-17 19:00] LABS: HEMATOCRIT 42.9 % (36.0-47.0); HEMOGLOBIN 14.9 g/dl (12.0-15.5); MEAN CORPUSCULAR HEMOGLOBIN 30.8 pg (27.0-33.0); MEAN CORPUSCULAR HGB CONC 34.7 g/dl (32.0-36.5); MEAN CORPUSCULAR VOLUME 88.6 fl (80.0-96.0); PLATELET COUNT, AUTOMATED 230 10^3/uL (150-450); RED BLOOD COUNT 4.84 10^6/uL (4.00-5.40); WHITE BLOOD COUNT 11.1 10^3/uL (4.0-10.0)
[2020-05-17] MEDS ORDERED: ISOVUE-370 76% 100ML VIAL As Ordered ONE (19:15)
--- NOTE | 2020-05-17 19:57 | REPVR ---
PROCEDURE INFORMATION: Exam: CT Maxillofacial With Contrast Exam date and time: 05/17/2020 7:24 PM Age: 35 years old Clinical indication: Other: Swelling; Additional info: Swelling abscess L TECHNIQUE: Imaging protocol: Computed tomography images of the face with intravenous contrast. Radiation optimization: All CT scans at this facility use at least one of these dose optimization techniques: automated exposure control; mA and/or kV adjustment per patient size (includes targeted exams where dose is matched to clinical indication); or iterative reconstruction. Contrast material: ISOVUE 370; Contrast volume: 75 ml; Contrast route: INTRAVENOUS (IV); COMPARISON: CT BRAIN LAB SINUSES 11/18/2018 4:36 PM FINDINGS: Orbital cavity: No evidence of postseptal orbital inflammatory changes. Bones/joints: No acute fracture. Paranasal sinuses: Moderate mucosal thickening in the left maxillary sinus likely related to the left maxillary dental disease. Soft tissues: There is left facial soft tissue swelling consistent with cellulitis. Etiology of the inflammation appears to be left maxillary dental disease; left maxillary 2nd premolar periapical abscess with adjacent soft tissue abscess along left maxillary buccal alveolar ridge measuring 1.8 x 0.7 x 1.4 cm, image 29 series 201, image 17 series 204. Lymph nodes: Mildly enlarged left submandibular lymph node measures 8 mm in short axis, likely a reactive lymph node. IMPRESSION: 1. Soft tissue abscess along the left maxillary buccal alveolar ridge measures up to 1.8 cm. There is regional soft tissue cellulitis. 2. Etiology of the abscess appears to be left maxillary 2nd premolar dental disease. 3. Chronic right maxillary sinusitis has developed, likely related to the dental disease. Electronically signed by: Marilin Perdomo On 05/17/2020 19:57:55 PM
[2020-05-17] MEDS ORDERED: ACETAMINOPHEN 325 MG TAB PO ONE (20:30)
[2020-05-17 20:31] VITALS: BP 139/86
== END 2020-05-17 20:35 | disposition home or self-care (01) ==
LOC: M ED 16:51
DX: K04.7 Periapical abscess without sinus (principal); E11.9 Type 2 diabetes mellitus without complications; Z79.899 Other long term (current) drug therapy; Z88.0 Allergy status to penicillin; Z88.1 Allergy status to other antibiotic agents; Z88.2 Allergy status to sulfonamides
CPT/HCPCS: 70487; 85027; 96361; 96365; 99283; Q9967

== ENCOUNTER 2023-01-07 15:51 | Emergency (ER) | payer BC, OTHER ==
[~2023-01-07] VITALS: Ht 160 cm; Wt 86.3 kg
[~2023-01-07 15:51] MED LIST changes: -CEFD1CAP8 PO; +CEFD300C42 PO; +LIDO2SOBTL SS; -LIDO2SOL9 SS
[2023-01-07] MEDS ORDERED: CIPROFLOXACIN 500MG TABLET PO ONE (19:35)
[2023-01-07] MEDS ORDERED: BOOSTRIX VACCINE (TETANUS/DIPHTH/ACEL. PERTUSSIS) 0.5ML SYR IM ONE (19:35)
[2023-01-07] MEDS ORDERED: CIPR-249 PO (20:57)
[2023-01-07 21:02] VITALS: BP 125/87; TEMP 98.2; O2SAT 99
== END 2023-01-07 21:03 | disposition home or self-care (01) ==
LOC: M ED 15:51
DX: S91.332A Puncture wound without foreign body, left foot, initial encounter (principal); W45.0XXA Nail entering through skin, initial encounter; Y92.009 Unspecified place in unspecified non-institutional (private) residence as the place of occurrence of the external cause; E11.9 Type 2 diabetes mellitus without complications; Z88.0 Allergy status to penicillin; Z88.2 Allergy status to sulfonamides

== ENCOUNTER 2023-09-18 20:57 | Emergency (ER) | payer BC, OTHER ==
[~2023-09-18] VITALS: Ht 160 cm; Wt 80.0 kg
[~2023-09-18 20:57] MED LIST changes: +CEFD1CAP9 PO; -CEFD300C42 PO; +CIPR-249 PO; +LIDO100S29 SS; -LIDO2SOBTL SS
[2023-09-18] MEDS ORDERED: CIPR-250 PO (21:51)
[2023-09-18] MEDS: CIPROFLOXACIN 250MG TAB PO ONE (22:11)
[2023-09-18 22:16] VITALS: BP 111/67; TEMP 97.7; O2SAT 98
[2023-09-21] MEDS ORDERED: NITR100C3 PO (19:31)
== END 2023-09-18 22:16 | disposition home or self-care (01) ==
LOC: M ED 20:57 → EEVIPCON 20:57 → M ED 22:16
DX: N39.0 Urinary tract infection, site not specified (principal)